=== PATIENT | female | born 1945 | race Caucasian/White ===

== ENCOUNTER 2022-03-07 13:48 | Observation (INO) ==
[2022-03-07] MEDS ORDERED: ZOFRAN INJ 4 MG VIAL IVP ONE (15:22)
--- NOTE | 2022-03-07 15:22 | DR.CP ---
HPI Time Seen Time Seen by Provider: 03/07/22 15:21 PCP Primary Care Physician: [facility] Complaint Chief Complaint Doctor Comments: 76 y/o female presents here for evaluation. Has been ill over the past 10 days per spouse. Having frequent nausea, and episodic abdominal pain. Pain located across the low abdomen, does not radiate. Nothing makes it better , nothing makes it worse. Having some loose stools, no abnormal colors. Denies fever, chills, cough, congestion, dyspnea. Having episodres of chest tightness, worse left side, does not radiate. Nothign makes the chest pain better or worse. Seen in PCP office, sent here for possible dehydration. Pt having generalized weakness. Chief Complaint:: DOCTOR AT [facility] SENT PT HERE TO BE EVALUATED D/T "DEHYDRATED" AND ELEVATED HEART RATE. PT C/O NAUSEA, STOMACH PAIN, LEFT CHEST PAIN. HX OF HIATAL HERNIA REPAIR AT [place] IN [facility] "AT THE FIRST OF THIS YEAR" WITH SIMILAR CHEST PAIN SX; SURGERY DID NOT RELIEVE CHEST PAIN. STOMACH PAIN "COMES AND GOES" Self Treatment fo Chief Complaint: PT TAKING GI COCKTAIL, TUMS, CARAFATE W/ TEMPORARY RELIEF OF SX. PT STATES SHE OFTEN TAKES MEDS TO HELP HER BOWELS MOVE AND THEN SOMETHING TO HELP THEM STOP. COVID-19 Coronavirus risk:travel/contact w/high risk person: No Has patient experienced Coronavirus symptoms: No Reviewed Nurses Notes Review: Yes Source History Provided: Patient and Significant Other Mode of Arrival Mode of Arrival: Ambulatory Timing Onset of Chief Complaint: 03/07/22 PMH PMH Past Medical History: Yes Past Medical History: Anxiety, Asthma, Depression and GERD Past Medical History Comment: BRONCHITIS Past Surgical History: Yes Surgical History: Cholecystectomy and Tonsillectomy Past Surgical History Comment: HERNIA REPAIR Family History History of Family Medical Conditions: No Social History Does any household member use tobacco: No Alcohol Use: None Do you use any recreational Drugs:: No Lives With: Spouse Lives Where: Home Travel Risk Coronavirus risk:travel/contact w/high risk person: No Has patient experienced Coronavirus symptoms: No Infectious screening In the last 2 months have you had wt loss of >10#?: NO Have you had fever, night sweats or hemotysis?: No Have you traveled outside the country in the last 6 months?: No Isolation: Standard ROS Review of Systems Constitutional: Malaise, Weakness and Loss of Appetite Eyes: No Symptoms Reported ENTM: No Symptoms Reported Respiratoy: No Symptoms Reported Cardiovascular: Chest Pain Gastrointestinal/Abdominal: See HPI, Abdominal Pain, Diarrhea and Nausea Genitourinary: No Symptoms Reported Neurological: Weakness Musculoskeletal: No Symptoms Reported Integumentary: No Symptoms Reported Hematologic/Lymphatic: No Symptoms Reported Psychiatric: No Symptoms Reported All Other Systems: Reviewed and Negative PE Vitals Vitals: Temperature 98.8 F Pulse Rate 126 Respiratory Rate 18 Blood Pressure 123/76 O2 Sat by Pulse Oximetry 99 General Limitations: No Limitations General Appearance: Alert and In No Apparent Distress Head Head Exam: Normal Inspection Eyes Eye exam: Normal Appearance, PERRL and EOMI ENT ENT Exam: Mucous Membranes Moist Chest Chest Inspection: Normal Inspection Respiratory Respiratory Exam: Normal Lung Sounds Bilat; negative Accessory Muscle Use or Respiratory Distress Cardiovascular Cardiovascular Exam: Regular Rate, Normal Rhythm, Tachycardia and Normal Heart Sounds Abdominal Exam Abdominal Exam: Normal Inspection, Normal Bowel Sounds, Soft and Tenderness (across lower abdomen, no obvious guarding, has degree of rebound. Back - no CVA tenderness.) Extremities Extremities Exam: Normal Inspection; negative Edema Neurologic Neurological Exam: Alert, Oriented X3 and CN II-XII Intact; negative Motor Sensory Deficit Skin Skin Exam: Warm and Dry MDM Differential Diagnosis Differential Diagnosis: Cholelithasis (appendicitis, diverticulitis, UTI, angina, CAD, ischemic bowel) COURSE Treatment Treatment: 76 y/o female, ill with abdominal issues over the past 10 days, also with episodes of chest tightness as well. W/u initiated. CT of abd/pelvis + for sigmoid diverticulitis. Has been nauseous. Recommend admission for IV antibiotics to start treatment for diverticulitis. ROR Labs Reviewed Result Diagrams: 03/08/22 05:08 03/08/22 05:08 Laboratory: WBC 11.8 X10^3/uL (3.6-10.0) H 03/07/22 16:05 RBC 4.48 X10^6/uL (3.5-5.4) 03/07/22 16:05 Hgb 14.6 g/dL (12.0-16.0) 03/07/22 16:05 Hct 42.4 % (36.0-47.0) 03/07/22 16:05 MCV 94.7 fL (80.0-100.0) 03/07/22 16:05 MCH 32.6 pg (27.0-34.0) 03/07/22 16:05 MCHC 34.4 g/dL (33.0-35.0) 03/07/22 16:05 RDW 13.7 % (11.6-16.5) 03/07/22 16:05 Plt Count 269 X10^3/uL (150.0-450.0) 03/07/22 16:05 MPV 8.5 fL (7.4-11.0) 03/07/22 16:05 Neut % (Auto) 72.8 % (42.0-75.0) 03/07/22 16:05 Lymph % (Auto) 12.6 % (21.0-51.0) L 03/07/22 16:05 Esmeralda % (Auto) 11.9 % (0.0-13.0) 03/07/22 16:05 Eos % (Auto) 1.0 % (0.9-2.9) 03/07/22 16:05 Baso % (Auto) 1.7 % (0.2-1.0) H 03/07/22 16:05 Neut # (Auto) 8.6 x10^3/uL (2.2-4.8) H 03/07/22 16:05 Lymph # (Auto) 1.5 X10^3/uL (1.3-2.9) 03/07/22 16:05 Esmeralda # (Auto) 1.4 x10^3/uL (0.3-0.8) H 03/07/22 16:05 Eos # (Auto) 0.1 x10^3/uL (0.0-0.2) 03/07/22 16:05 Baso # (Auto) 0.2 X10^3/uL (0.0-0.1) H 03/07/22 16:05 Absolute Nucleated RBC 0.1 /100WBC 03/07/22 16:05 Sodium 138 mmol/L (136-145) 03/07/22 16:05 Corrected Sodium 138 mmol/L (136-145) 03/07/22 16:05 Potassium 4.1 mmol/L (3.5-5.1) 03/07/22 16:05 Chloride 101 mmol/L (98-107) 03/07/22 16:05 Carbon Dioxide 30.1 mmol/L (21-32) 03/07/22 16:05 BUN 18 mg/dL (7-18) 03/07/22 16:05 Creatinine 1.14 mg/dL (0.55-1.02) H 03/07/22 16:05 Est GFR (MDRD) Af Amer 59 (>60) 03/07/22 16:05 Est GFR (MDRD) Non-Af 49 (>60) L 03/07/22 16:05 Glucose 114 mg/dL (65-99) H 03/07/22 16:05 Calcium 9.2 mg/dL (8.5-10.1) 03/07/22 16:05 Corrected Calcium TNP 03/07/22 16:05 Total Bilirubin 0.50 mg/dL (0.2-1.0) 03/07/22 16:05 AST 24 Units/L (15-37) 03/07/22 16:05 ALT 20 Units/L (12-78) 03/07/22 16:05 Alkaline Phosphatase 65 Units/L (46-116) 03/07/22 16:05 Creatine Kinase 60 Units/L (26-192) 03/07/22 16:05 CK-MB (CK-2) < 1.0 ng/mL (0-4.0) 03/07/22 16:05 CK/CKMB % Calc 1.7 % (<4) 03/07/22 16:05 Troponin I High Sens 6.6 ng/L (4.0-60.0) 03/07/22 16:05 Total Protein 6.9 g/dL (6.4-8.2) 03/07/22 16:05 Albumin 3.5 g/dL (3.4-5.0) 03/07/22 16:05 Globulin 3.4 g/dL (2.5-4.5) 03/07/22 16:05 Albumin/Globulin Ratio 1.0 Ratio (1.1-2.1) L 03/07/22 16:05 Lipase 68 Units/L (73-393) L 03/07/22 16:05 Specimen Type Clean catch urine 03/07/22 16:20 Urine Color Yellow (YELLOW) 03/07/22 16:20 Urine Appearance Cloudy (CLEAR) 03/07/22 16:20 Urine pH 7.0 (5.0 - 8.0) 03/07/22 16:20 Ur Specific [place] 1.010 (1.000-1.030) 03/07/22 16:20 Urine Protein 1+ (NEGATIVE) 03/07/22 16:20 Urine Glucose (UA) Negative (NEGATIVE) 03/07/22 16:20 Urine Ketones 2+ (NEGATIVE) 03/07/22 16:20 Urine Blood 1+ (NEGATIVE) 03/07/22 16:20 Urine Nitrite Negative (NEGATIVE) 03/07/22 16:20 Urine Bilirubin Negative (NEGATIVE) 03/07/22 16:20 Urine Urobilinogen Normal (NORMAL) 03/07/22 16:20 Ur Leukocyte Esterase 1+ (NEGATIVE) 03/07/22 16:20 Urine RBC 5-10 /HPF (0-3) A 03/07/22 16:20 Urine WBC 5-10 /HPF (0-5) A 03/07/22 16:20 Ur Squamous Epith Cells Moderate /HPF (NEGATIVE) 03/07/22 16:20 Amorphous Sediment 3+ /HPF (NEGATIVE) 03/07/22 16:20 Urine Bacteria 1+ /HPF (NEGATIVE) 03/07/22 16:20 Ur Culture Indicated? No/not indicated 03/07/22 16:20 SARS-CoV-2 (PCR) Negative (NEGATIVE) 03/07/22 16:23 Influenza Type A (PCR) Negative (NEGATIVE) 03/07/22 16:23 Influenza Type B (PCR) Negative (NEGATIVE) 03/07/22 16:23 RSV (PCR) Negative (NEGATIVE) 03/07/22 16:23 Labs acceptable EKG Rate: 112 [place]: Normal Rhythm: ST Block: RBBB (incomplete) ST: Nonsp Opioid Opioid Risk Tool Age (Naveed box if 16-45): No History of Preadolescent Sexual Abuse: No Total: 0 Total Score Risk Category: Low Risk Copyright: Leonides SIMS predicting aberrant behaviors Discharge Plan Diagnosis Discharge Problem: Sigmoid diverticulitis Discharge Plan Patient Disposition: 09 ADMITTED INPATIENT Condition: Stable Orders to Discharge Patient Discharge Orders: Discharge (Routine); Ordered 03/08/22 Ordered By: MIGUEL JUNIOR
[2022-03-07] MEDS ORDERED: NS 500 ML IV 500 ML IV ONE (15:23)
[2022-03-07] MEDS ORDERED: NS 1,000 ML IV 1,000 ML ONE (15:59)
[2022-03-07] MEDS ORDERED: ZOFRAN INJ 4 MG VIAL ONE (15:59)
--- NOTE | 2022-03-07 16:13 | RAD ---
HISTORYLEFT CHEST PAIN Relevant Clinical InformationSTUDYCHEST, 1 VIEWCOMPARISONFINDINGSThe trachea is midline. The cardiac silhouette is unremarkable. The lungs are clear without focal infiltrate or effusion. The bony thorax is unremarkable.IMPRESSIONNo acute cardiopulmonary findings .Electronically signed by: De Spain (Mar 07, 2022 16:11:24)
[2022-03-07 16:19] LABS: BASOPHILS # (AUTO) 0.2 X10^3/uL (0.0-0.1); BASOPHILS % (AUTO) 1.7 % (0.2-1.0); EOSINOPHILS # (AUTO) 0.1 x10^3/uL (0.0-0.2); HEMATOCRIT 42.4 % (36.0-47.0); HEMOGLOBIN 14.6 g/dL (12.0-16.0); LYMPHOCYTES # (AUTO) 1.5 X10^3/uL (1.3-2.9); LYMPHOCYTES % (AUTO) 12.6 % (21.0-51.0); MEAN CORPUSCULAR HEMOGLOBIN 32.6 pg (27.0-34.0); MEAN CORPUSCULAR HGB CONC 34.4 g/dL (33.0-35.0); MEAN CORPUSCULAR VOLUME 94.7 fL (80.0-100.0); MEAN PLATELET VOLUME 8.5 fL (7.4-11.0); MONOCYTES # (AUTO) 1.4 x10^3/uL (0.3-0.8); MONOCYTES % (AUTO) 11.9 % (0.0-13.0); NEUTROPHILS # (AUTO) 8.6 x10^3/uL (2.2-4.8); NEUTROPHILS % (AUTO) 72.8 % (42.0-75.0); RED BLOOD COUNT 4.48 X10^6/uL (3.5-5.4); RED CELL DISTRIBUTION WIDTH 13.7 % (11.6-16.5); WHITE BLOOD COUNT 11.8 X10^3/uL (3.6-10.0)
[2022-03-07 16:38] LABS: ALANINE AMINOTRANSFERASE 20 Units/L (12-78); ALBUMIN 3.5 g/dL (3.4-5.0); ALKALINE PHOSPHATASE 65 Units/L (46-116); ASPARTATE AMINO TRANSFERASE 24 Units/L (15-37); BLOOD UREA NITROGEN 18 mg/dL (7-18); CALCIUM 9.2 mg/dL (8.5-10.1); CARBON DIOXIDE 30.1 mmol/L (21-32); CHLORIDE 101 mmol/L (98-107); CKMB % 1.7 % (<4); COR NA(FOR HYPERGLY) 138 mmol/L (136-145); CREATINE KINASE 60 Units/L (26-192); CREATINE KINASE MB < 1.0 ng/mL (0-4.0); CREATININE 1.14 mg/dL (0.55-1.02); LIPASE 68 Units/L (73-393); SODIUM 138 mmol/L (136-145); TOTAL PROTEIN 6.9 g/dL (6.4-8.2); eGFR NON BLACK RACES 49 (>60)
[2022-03-07 17:06] LABS: BILIRUBIN,URINE NEGATIVE (NEGATIVE); BLOOD/HEMOGLOBIN,URINE 1+ (NEGATIVE); GLUCOSE, URINE NEGATIVE (NEGATIVE); KETONES,URINE 2+ (NEGATIVE); LEUKOCYTE ESTERASE ,URINE 1+ (NEGATIVE); NITRITES,URINE NEGATIVE (NEGATIVE); PROTEIN,URINE 1+ (NEGATIVE); UROBILINOGEN,URINE NORMAL (NORMAL)
[2022-03-07 17:13] LABS: APPEARANCE,URINE CLOUDY (CLEAR); COLOR,URINE YELLOW (YELLOW)
[2022-03-07 17:16] LABS: BACTERIA,URINE 1+ /HPF (NEGATIVE); SQUAMOUS EPITHELIAL CELL,UR MODERATE /HPF (NEGATIVE)
--- NOTE | 2022-03-07 17:33 | CT ---
HISTORYSENT PT HERE TO BE EVALUATED D/T "DEHYDRATED" AND ELEVATED HEART RATE. PT C/O NAUSEA, STOMACH PAIN, LEFT CHEST PAIN.STUDYABDOMEN/PELVIS WITH CONCOMPARISONNoneTECHNIQUEAxial CT images of the abdomen and pelvis were obtained after the administration of IV contrast, 100 mL Omnipaque 350, and reformatted into coronal and sagittal planes for further evaluation.Radiation dose: 386.10 mGy-cm total DLPFINDINGSLung bases are clear.Small sliding-type hiatal hernia.Stomach appears normal.Solid visceral organs of the upper abdomen are unremarkable.Status post cholecystectomy.Homogeneous enhancement of the kidneys without hydronephrosis or hydroureter.Unremarkable appearance of the urinary bladder.Imaged reproductive structures are unremarkable.Inflammatory changes along the medial aspect of the mid sigmoid colon adjacent to colonic diverticula.Otherwise, unremarkable appearance of the large and small bowel.No evidence of acute appendicitis.No pneumoperitoneum.No significant fluid collection.No adenopathy.No acute osseous abnormality.IMPRESSION1. Findings are consistent with acute uncomplicated sigmoid diverticulitis.2. Small sliding-type hiatal hernia.Electronically signed by: Flavio Pringle (Mar 07, 2022 17:31:20)
[2022-03-07] MEDS ORDERED: XANAX PO PRN (20:03)
[2022-03-07] MEDS ORDERED: LEVAQUIN PREMIX IV 500 MG 500 MG/100 ML BAG IV ONE (20:03)
[2022-03-07] MEDS ORDERED: ZOFRAN INJ 4 MG VIAL IVP PRN (20:03)
[2022-03-07] MEDS ORDERED: ULTRAM PO PRN (20:03)
[2022-03-07] MEDS ORDERED: PULMICORT NEB TX 0.5 MG NEB SCH (21:00)
[2022-03-07] MEDS ORDERED: PROVENTIL NEB TX 0.083% 2.5MG/ 3ML NEB SCH (21:00)
[2022-03-07] MEDS ORDERED: LIPITOR TAB 20 MG PO SCH (21:00)
[2022-03-07] MEDS ORDERED: ARICEPT TAB 10 MG PO SCH (21:00)
[2022-03-07] MEDS: NS 1,000 ML IV 1,000 ML IV SCH (21:45)
[2022-03-07] MEDS: DEPAKOTE D.R. TAB PO SCH (21:46)
[2022-03-07] MEDS: PAXIL PO SCH (21:46)
[2022-03-07] MEDS: PROTONIX TAB 40 MG PO SCH (21:46)
[2022-03-07] MEDS: FLONASE NASAL SPRAY ENOSTRIL SCH (21:52)
[2022-03-07] MEDS: FLAGYL IV PREMIX 500 MG BAG 500 MG/100 ML BAG IV SCH (21:53)
[2022-03-07 22:15] VITALS: BMI 21.6
[2022-03-07] MEDS ORDERED: RESTORIL CAP 15 MG PO PRN (23:15)
[2022-03-07] MEDS ORDERED: RESTORIL CAP 15 MG PO ONE (23:17)
[2022-03-08 06:28] LABS: BASOPHILS % (AUTO) 0.4 % (0.2-1.0); EOSINOPHILS # (AUTO) 0.1 x10^3/uL (0.0-0.2); EOSINOPHILS % (AUTO) 0.8 % (0.9-2.9); HEMATOCRIT 36.2 % (36.0-47.0); HEMOGLOBIN 12.3 g/dL (12.0-16.0); LYMPHOCYTES # (AUTO) 1.4 X10^3/uL (1.3-2.9); LYMPHOCYTES % (AUTO) 15.6 % (21.0-51.0); MEAN CORPUSCULAR HEMOGLOBIN 32.4 pg (27.0-34.0); MEAN CORPUSCULAR HGB CONC 33.9 g/dL (33.0-35.0); MEAN CORPUSCULAR VOLUME 95.7 fL (80.0-100.0); MEAN PLATELET VOLUME 8.7 fL (7.4-11.0); MONOCYTES # (AUTO) 1.5 x10^3/uL (0.3-0.8); MONOCYTES % (AUTO) 16.7 % (0.0-13.0); NEUTROPHILS # (AUTO) 5.9 x10^3/uL (2.2-4.8); NEUTROPHILS % (AUTO) 66.5 % (42.0-75.0); RED BLOOD COUNT 3.78 X10^6/uL (3.5-5.4); WHITE BLOOD COUNT 8.8 X10^3/uL (3.6-10.0)
[2022-03-08 06:53] LABS: ALANINE AMINOTRANSFERASE 16 Units/L (12-78); ALBUMIN 2.8 g/dL (3.4-5.0); ALKALINE PHOSPHATASE 59 Units/L (46-116); ASPARTATE AMINO TRANSFERASE 15 Units/L (15-37); BLOOD UREA NITROGEN 15 mg/dL (7-18); CALCIUM 8.3 mg/dL (8.5-10.1); CARBON DIOXIDE 25.4 mmol/L (21-32); CHLORIDE 105 mmol/L (98-107); COR CA(FOR HYPOALB) 9.3 mg/dL (8.5-10.1); CREATININE 1.02 mg/dL (0.55-1.02); SODIUM 139 mmol/L (136-145); TOTAL PROTEIN 5.5 g/dL (6.4-8.2); eGFR NON BLACK RACES 56 (>60)
[2022-03-08] MEDS: DEPAKOTE D.R. TAB PO SCH (08:10)
[2022-03-08] MEDS: FLONASE NASAL SPRAY ENOSTRIL SCH (08:11)
[2022-03-08] MEDS: PAXIL PO SCH (08:11)
[2022-03-08] MEDS: FLAGYL IV PREMIX 500 MG BAG 500 MG/100 ML BAG IV SCH (08:11)
[2022-03-08] MEDS: PROTONIX TAB 40 MG PO SCH (08:12)
[2022-03-08] MEDS ORDERED: LEVAQUIN PREMIX IV 500 MG 500 MG/100 ML BAG IV SCH (09:00)
[2022-03-08] MEDS ORDERED: LOVENOX INJ 40 MG SYR SC SCH (09:00)
[2022-03-08] MEDS ORDERED: LEVSIN/MAALOX/LIDOC VISC PO STA (09:50)
[2022-03-08] MEDS ORDERED: CIPRO TAB 500 MG PO SCH (10:00)
[2022-03-08] MEDS ORDERED: FLAGYL 50 MG/1 ML - 120ML COMPOUNDED SUSP. PO SCH (10:00)
[2022-03-08] MEDS ORDERED: FLAGYL TAB 500 MG PO SCH (10:00)
[2022-03-08] MEDS: NS 1,000 ML IV 1,000 ML IV SCH (10:07)
[2022-03-08] MEDS ORDERED: LEVSIN/MAALOX/LIDOC VISC ONE (10:08)
[2022-03-08 12:51] VITALS: BP 121/65
[2022-03-08] MEDS ORDERED: LEVAQUIN PREMIX IV 250 MG 250 MG/50 ML BAG IV SCH (21:00)
== END 2022-03-08 13:46 | disposition home or self-care (01) ==
LOC: SUPCPDRO → MED/SURG 13:48 → ER 13:48 → MED/SURG 20:06
PROVIDERS: ADMIT Obstetrics & Gynecology Obstetrics; ATTEND Obstetrics & Gynecology Obstetrics
DX: R94.31 Abnormal electrocardiogram [ECG] [EKG]; R07.89 Other chest pain; E86.0 Dehydration; K57.32 Diverticulitis of large intestine without perforation or abscess without bleeding; K21.9 Gastro-esophageal reflux disease without esophagitis; Z20.822 Contact with and (suspected) exposure to COVID-19; K44.9 Diaphragmatic hernia without obstruction or gangrene